=== PATIENT | male | born 1940 | race Caucasian/White ===

== ENCOUNTER 2016-03-19 18:02 | Emergency (ER) | payer MEDICARE, BC | END 2016-03-20 00:15 | disposition home or self-care (01) | LOC: ER 18:02 | DX: R42 Dizziness and giddiness (principal); R00.1 Bradycardia, unspecified; E11.65 Type 2 diabetes mellitus with hyperglycemia; Z79.899 Other long term (current) drug therapy; Z79.82 Long term (current) use of aspirin | CPT/HCPCS: 36415; 71020; 80047; 80053; 81001; 82947; 83735; 84439; 84443; 84484; 85014; 85025; 93005; 96372 ==